=== PATIENT | female | born 1945 | race Caucasian/White ===

== ENCOUNTER → 2017-10-05 | Outpatient (CLI) | payer MEDICARE, BC, OTHER ==
[~2017-10-05] MED LIST: ACTOS 45MG45 MG/TAB PO; ASPIRIN E.C. 8181 MG PO; CEPHALEXIN500 M1 PO; DIOVAN 80MG80 MG PO; DIOVAN40 MG PO; FASTIN30 MG; FASTIN30 MG PO; FORTAMET1000 MG PO; GABAPENTIN300 M1 PO; GLUCOTROL 5M5 MG/TAB PO; GLUCOTROL5 MG PO; HCTZ 25MG25 MG PO; JANUVIA50 MG PO; LASIX 20MG TABL20 MG PO; LASIX PO; LEVEMIR FLEX100 U/ML SQ; LEVEMIR FLEXPEN SQ; LISINOPRIL PO; PHENTERMINE15 MG PO; TYLENOL ARTHRITIS PO; VITAMIN C PURE500 M1 PO; VITAMIN D32000 IU PO
== END ==
LOC: MC.RAD 13:20
DX: Z12.31 Encounter for screening mammogram for malignant neoplasm of breast (principal)

== ENCOUNTER → 2019-08-21 | Outpatient (CLI) | payer MEDICARE, BC, OTHER | LOC: MC.RAD 13:40 | DX: Z12.31 Encounter for screening mammogram for malignant neoplasm of breast (principal) ==

== ENCOUNTER 2024-05-30 10:50 | Day surgery (SDC) | payer MEDICARE, OTHER ==
[~2024-05-30] VITALS: Ht 152.4 cm; Wt 123.7 kg
[~2024-05-30 10:50] MED LIST changes: +HYDROmorphone 1 MG/1 ML SYRINGE [PACU/SDC ONLY] IV PRN; +NS 1,000 ML IV SCH; +Ondansetron 4 MG/2 ML VIAL IV PRN; +hydrALAZINE 20 MG/ML 1 ML VIAL IV PRN
[2024-05-30] MEDS ORDERED: Lidocaine PF 2% (20 MG/ML) 5 ML VIAL ONE (11:43)
[2024-05-30] MEDS ORDERED: fentaNYL 50 MCG/ML 2 ML VIAL ONE (11:43)
[2024-05-30] MEDS ORDERED: Rocuronium 50 MG/5 ML Multi-Dose VIAL ONE (11:43)
[2024-05-30] MEDS ORDERED: dexAMETHasone 10 MG/ML VIAL ONE (11:44)
[2024-05-30] MEDS ORDERED: Ondansetron 4 MG/2 ML VIAL ONE (11:44)
[2024-05-30 12:19] VITALS: BP 154/54; PULSE 80; TEMP 96.9
[2024-05-30 12:34] LABS: CALCIUM 9.2 mg/dL (8.4-10.2); CREATININE, serum 3.04 mg/dL (0.57-1.11); POTASSIUM 4.5 mEq/L (3.5-4.5)
[2024-05-30] MEDS ORDERED: GRALISE600 MG PO (13:54)
[2024-05-30] MEDS ORDERED: CALCITRIOL PO (13:56)
[2024-05-30] MEDS ORDERED: LASIX 40MG TABL40 MG PO (13:56)
[2024-05-30] MEDS ORDERED: LEVEMIR FLEX100 U/ML SQ (13:57)
[2024-05-30] MEDS ORDERED: COZAAR 50MG50 MG/TAB PO (13:57)
[2024-05-30] MEDS ORDERED: NOVOLOG FLEX100 U/ML SQ (13:58)
[2024-05-30] MEDS ORDERED: VITAMINC500CH (13:59)
[2024-05-30] MEDS ORDERED: NATURAL IRON65 MG (13:59)
[2024-05-30] MEDS ORDERED: Topical Skin Adhesive 1 EACH (1 ML) TOP ONE (14:24)
[2024-05-30] MEDS ORDERED: Ondansetron 4 MG/2 ML VIAL IV PRN (14:30)
[2024-05-30] MEDS ORDERED: Acetaminophen 325 MG TAB PO PRN (14:30)
[2024-05-30] MEDS ORDERED: NORCO 325 MG-51 TAB PO (14:30)
[2024-05-30 15:05] VITALS: BP 164/54; PULSE 79; TEMP 97.3
--- NOTE | 2024-05-30 15:12 | NUR ---
Pt to room 5 via cart at 1505. Bedside handoff received from BRET Russell. VSS, see flowsheet. IV fluids infusing through right hand IV site, no complications. Crackers and water given. Deneis pain or nausea. Daughter and at bedside. Questions answered. Cart in low position, call light within reach.
[2024-05-30 15:20] VITALS: BP 121/38; PULSE 78
--- NOTE | 2024-05-30 15:25 | NUR ---
Eating crackers without nausea. Continues to deny pain.
[2024-05-30 15:35] VITALS: BP 170/47; PULSE 77
--- NOTE | 2024-05-30 16:20 | NUR ---
Pt dressed at 1550. Discharge instructions and education reviewed with patient and family. Questions answered. IV site removed. Dressings CDI to abdomen . Follow up appt made and given to patient. Pt down to husbands car via w/c at 1555, accompanied by daughter and BRET Torres.
== END 2024-05-30 15:55 | disposition home or self-care (01) ==
LOC: SDCO 10:50
PROVIDERS: Nurse Anesthetist, Certified Registered
DX: N18.5 Chronic kidney disease, stage 5 (principal); E11.22 Type 2 diabetes mellitus with diabetic chronic kidney disease; I12.0 Hypertensive chronic kidney disease with stage 5 chronic kidney disease or end stage renal disease; E11.40 Type 2 diabetes mellitus with diabetic neuropathy, unspecified; E66.01 Morbid (severe) obesity due to excess calories; Z68.43 Body mass index [BMI] 50.0-59.9, adult; Z79.4 Long term (current) use of insulin
CPT/HCPCS: C1750; J0690; J1100; J2405; J2704; J3010; J7030